=== PATIENT | female | born 1990 | race Caucasian/White ===

== ENCOUNTER 2017-03-07 03:11 | Emergency (ER) | payer OTHER ==
[~2017-03-07] VITALS: Ht 160 cm; Wt 125.4 kg
[~2017-03-07 03:11] MED LIST: CIPRO500 MG PO; LORTAB 5-325 M1 EACH PO; NAPROSYN500 MG PO; PYRIDIUM100 MG PO
[2017-03-07] MEDS ORDERED: PERCOCET 5/31 TABLET PO (04:53)
[2017-03-07 05:11] VITALS: BP 128/92
== END 2017-03-07 05:12 | disposition home or self-care (01) ==
LOC: EME 03:11
DX: S09.90XA Unspecified injury of head, initial encounter (principal); Y04.0XXA Assault by unarmed brawl or fight, initial encounter; Y92.199 Unspecified place in other specified residential institution as the place of occurrence of the external cause; Y99.0 Civilian activity done for income or pay
CPT/HCPCS: 70450; 99281; 99284